=== PATIENT | male | born 1995 | race African-American/Black ===

== ENCOUNTER 2019-01-11 01:16 | Emergency (ER) | payer SELFPAY ==
[~2019-01-11] VITALS: Ht 170.2 cm; Wt 63.5 kg
--- NOTE | 2019-01-11 01:34 | PHYS DOC ---
Past History Past Medical History: No Pertinent History Past Surgical History: No Surgical History Smoking: Non-smoker Alcohol Use: Occasionally Drug Use: None Adult General HPI HPI Patient is a 23-year-old male presents after a possible seizure. Patient felt really hot and cold then rolled off the couch. There was no loss of bowel or bladder control. He reports having a headache, not worst headache of life. He reports multiple previous episodes of this without previous evaluation. Denies any nausea or vomiting or tongue biting. There is a family history of seizures and his father. Denies any photo or phonophobia. This happened shortly prior to arrival. Patient reports having 2 drinks around 8 to 9:00 tonight.[] Review of Systems Review of Systems Constitutional: Denies fever or chills [] Eyes: Denies change in visual acuity, redness, or eye pain [] HENT: Denies nasal congestion or sore throat [] Respiratory: Denies cough or shortness of breath [] Cardiovascular: No chest pain or palpitations[] GI: Denies abdominal pain, nausea, vomiting, bloody stools or diarrhea [] : Denies dysuria or hematuria [] Musculoskeletal: Denies back pain or joint pain [] Integument: Denies rash or skin lesions [] Neurologic: Denies focal weakness or sensory changes, see history of present illness ,[] Endocrine: Denies polyuria or polydipsia [] All other systems were reviewed and found to be within normal limits, except as documented in this note. Physical Exam Physical Exam Constitutional: Well developed, well nourished, no acute distress, non-toxic appearance. [] HENT: Normocephalic, atraumatic, bilateral external ears normal, TMs are clear without any blood or fluid. Oropharynx moist, no oral exudates, nose normal. [] Eyes: PERRLA, EOMI, conjunctiva normal, no discharge. [] Neck: Normal range of motion, no tenderness, supple, no stridor. No nuchal rigidity, no carotid bruit[] Cardiovascular:Heart rate regular rhythm, no murmur [] Lungs & Thorax: Bilateral breath sounds clear to auscultation [] Abdomen: Bowel sounds normal, soft, no tenderness, no masses, no pulsatile masses. [] Skin: Warm, dry, no erythema, no rash. [] Back: No tenderness, no CVA tenderness. [] Extremities: No tenderness, no cyanosis, no clubbing, ROM intact, no edema. [] Neurologic: Alert and oriented X 3, normal motor function, normal sensory function, no focal deficits noted. Normal gait, normal rapid repetitive and alternating movements.[] Psychologic: Affect normal, judgement normal, mood normal. [] EKG EKG EKG shows a sinus rhythm at 63 bpm, normal axis, QTC is normal at 421 ms, no ST elevation. Nonspecific ST-T wave changes. No old EKG available for comparison. Interpreted by me at 0143.[] Radiology/Procedures Radiology/Procedures PROCEDURE: CT HEAD WO CONTRAST INDICATION: Seizure with headache COMPARISON: None. TECHNIQUE: Axial CT images obtained through the head without intravenous contrast. One or more of the following individualized dose reduction techniques were utilized for this examination: 1. Automated exposure control; 2. Adjustment of the mA and/or kV according to patient size; 3. Use of iterative reconstruction technique. FINDINGS: No intracranial hemorrhage. No midline shift. Basal cisterns patent. Ventricles and sulci are unremarkable. No acute osseous abnormality. Orbits and paranasal sinuses unremarkable. 10 mm fluid attenuation structure right cerebral hemisphere. Could be prominent Virchow-Nir space. Other causes such as sequela of lacunar infarct can also have this appearance but would be less common in a patient of this age. IMPRESSION: 1. No acute intracranial hemorrhage.[] Course & Med Decision Making Course & Med Decision Making Pertinent Labs and Imaging studies reviewed. (See chart for details) ED course: Patient arrived, was placed in bed, and tolerated exam well. He was transported to and from radiology without any complications. After the return of the laboratory and imaging findings, these were discussed with the patient who voiced understanding. He had no episodes of this reported seizure activity while in the emergency department. He was discharged in improved condition. Medical decision making: Do not believe patient had a seizure, his electrolytes are normal as is his lactic acid. There is no evidence of meningitis or encephalitis. No evidence of any significant toxic syndrome. Note is made of the cocaine as well as cannabinoids in his urine drug screen. Tonight symptoms may be some component from that. Do not believe this to be alcohol withdrawal seizures since patient had been drinking this evening. There is no evidence of a stroke syndrome. Head CT was reviewed and do not believe that the findings are acutely associated with tonight's events. Given that this has been going on for a long time, we will have patient follow-up with primary care to start further evaluation.[] Dragon Disclaimer Dragon Disclaimer This electronic medical record was generated, in whole or in part, using a voice recognition dictation system. Departure Departure: Impression: Primary Impression: Headache Additional Impressions: Seizure-like activity Drug abuse Disposition: HOME, SELF-CARE Condition: STABLE Referrals: PCP,NO (PCP) Patient Instructions: Drug Abuse and Addiction-SportsMed, General Headache Without Cause, Seizure, Adult Additional Instructions: No driving for 6 months or until cleared by her primary care physician. Follow- up with your regular doctor in 2 days. If you do not have a regular doctor list of local clinics will be provided for you. Do not use any drugs or medicines that are not prescribed for you, they may kill you!. Return to the ER if worsening pain, weakness, return of the seizure activity, or any other concerns. Scripts Meloxicam (MELOXICAM) 7.5 Mg Tablet 7.5 MG PO DAILY for PAIN, #20 TAB Prov: RAJ KING DO 01/11/19 Problem Qualifiers Primary Impression: Headache Headache type: unspecified Headache chronicity pattern: unspecified pattern Intractability: not intractable Qualified Codes: R51 - Headache RAJ KING DO Jan 11, 2019 01:34
--- NOTE | 2019-01-11 01:44 | EKG ---
[address] [address] Test Date: 2019-01-11 Test Time: 01:43:00 Pat Name: JARED GUTIERREZ Department: Room: Gender: M Helper/Driver: ARIES : 1995 Requested By: RAJ KING Order Number: [id number] Reading MD: Measurements Intervals [place] Rate: 63 P: 68 NC: 162 QRS: 55 QRSD: 86 T: 36 QT: 408 QTc: 421 Interpretive Statements SINUS RHYTHM QRS(T) CONTOUR ABNORMALITY CONSISTENT WITH SEPTAL MYOCARDIAL DAMAGE ABNORMAL ECG RI6.01 No previous ECG available for comparison
[2019-01-11 02:27] LABS: BARBITURATES NEG (NEG); BENZODIAZEPINES NEG (NEG); CANNABINOIDS POS (NEG); COCAINE POS (NEG); METHADONE NEG (NEG); OPIATES NEG (NEG); PHENCYCLIDINE NEG (NEG)
[2019-01-11 02:27] LABS: BASO # 0.1 x10^3/uL (0.0-0.2); BASO % 1 % (0-3); EOS # 0.1 x10^3/uL (0.0-0.7); EOS % 1 % (0-3); HEMATOCRIT 42.9 % (39.0-53.0); HEMOGLOBIN 13.9 g/dL (13.0-17.5); LYMPH # 2.8 x10^3/uL (1.0-4.8); LYMPH % 26 % (24-48); MEAN CORPUSCULAR HEMOGLOBIN 27 pg (25-35); MEAN CORPUSCULAR HGB CONC 32 g/dL (31-37); MEAN CORPUSCULAR VOLUME 84 fL (79-100); MONO # 0.8 x10^3/uL (0.0-1.1); MONO % 7 % (0-9); NEUT # 6.9 x10^3uL (1.8-7.7); NEUT % 64 % (31-73); PLATELET COUNT 208 x10^3/uL (140-400); RED BLOOD COUNT 5.09 x10^6/uL (4.30-5.70); RED CELL DISTRIBUTION WIDTH 13.4 % (11.5-14.5); WHITE BLOOD COUNT 10.7 x10^3/uL (4.0-11.0)
[2019-01-11 02:28] LABS: AMPHETAMINE/METHAMPHETAMINE NEG (NEG)
[2019-01-11 02:31] LABS: ALBUMIN 3.9 g/dL (3.4-5.0); CALCIUM 9.5 mg/dL (8.5-10.1); CREATININE 0.8 mg/dL (0.7-1.3); GFR 143.7; TOTAL BILIRUBIN 0.6 mg/dL (0.2-1.0); TOTAL PROTEIN 7.9 g/dL (6.4-8.2)
--- NOTE | 2019-01-11 02:33 | RAD ---
INDICATION: Seizure with headache COMPARISON: None. TECHNIQUE: Axial CT images obtained through the head without intravenous contrast. One or more of the following individualized dose reduction techniques were utilized for this examination: 1. Automated exposure control; 2. Adjustment of the mA and/or kV according to patient size; 3. Use of iterative reconstruction technique. FINDINGS: No intracranial hemorrhage. No midline shift. Basal cisterns patent. Ventricles and sulci are unremarkable. No acute osseous abnormality. Orbits and paranasal sinuses unremarkable. 10 mm fluid attenuation structure right cerebral hemisphere. Could be prominent Virchow-Nir space. Other causes such as sequela of lacunar infarct can also have this appearance but would be less common in a patient of this age. IMPRESSION: 1. No acute intracranial hemorrhage. Electronically signed by: Osmany Garcia MD (01/11/2019 2:30 AM) [facility]
[2019-01-11] MEDS ORDERED: MELO7.5T29 PO (02:43)
[2019-01-11 03:21] VITALS: BP 126/68
== END 2019-01-11 03:22 | disposition home or self-care (01) ==
LOC: ER 01:16
DX: R51 Headache (principal); R56.9 Unspecified convulsions; F19.10 Other psychoactive substance abuse, uncomplicated
CPT/HCPCS: 36415; 70450; 80053; 80307; 83605; 85025; 93005; 99285

== ENCOUNTER 2020-08-12 12:49 | Emergency (ER) | payer SELFPAY ==
[~2020-08-12] VITALS: Ht 170.2 cm; Wt 60.5 kg
[~2020-08-12 12:49] MED LIST: MELO7.5T29 PO
[2020-08-12] MEDS ORDERED: NALOXONE 0.4 MG/ML VIAL. NS ONE (13:00)
[2020-08-12] MEDS ORDERED: NALOXONE 2 MG/2 ML DISP.SYRIN. IV ONE (13:00)
[2020-08-12] MEDS ORDERED: IV NORMAL SALINE 1,000ML 1,000 ML IV ONE (13:00)
--- NOTE | 2020-08-12 13:23 | RAD ---
EXAM: Head CT without contrast. HISTORY: Altered mental status. TECHNIQUE: Computed tomographic images of the head were obtained without contrast. *One or more of the following individualized dose reduction techniques were utilized for this examina tion: 1. Automated exposure control. 2. Adjustment of the mA and/or kV according to patient size. 3. Use of iterative reconstruction technique. COMPARISON: 01/11/2019. FINDINGS: There is no acute or subacute extra-axial or intraparenchymal hemorrhage. There is no mass effect or midline shift. There is no hydrocephalus. The cobian-white matter differentiation pattern is intact. There is an incidental right choroid fissure cyst measuring 1.1 cm. The visualized portions of the orbits, paranasal sinuses and mastoid air cells are unremarkable. No s uspicious calvarial lesion is seen. IMPRESSION: No acute intracranial findings. Note is made that MRI is more sensitive for acute infarction. Electronically signed by: Kathleen Tanner MD (08/12/2020 1:21 PM) [id number]
[2020-08-12 13:26] LABS: CALCIUM 9.1 mg/dL (8.5-10.1); CREATININE 1.3 mg/dL (0.7-1.3); GFR 80.7; POTASSIUM 3.6 mmol/L (3.5-5.1)
--- NOTE | 2020-08-12 13:26 | RAD ---
EXAM: Chest, single view. HISTORY: Altered mental status. COMPARISON: None. FINDINGS: A frontal view of the chest is obtained. There is no infiltrate, pleural effusion or pneumo thorax. The heart is normal in size. IMPRESSION: No acute pulmonary finding. Electronically signed by: Kathleen Tanner MD (08/12/2020 1:24 PM) [id number]
--- NOTE | 2020-08-12 13:27 | EKG ---
[address] [address] Test Date: 2020-08-12 Test Time: 13:04:49 Pat Name: JARED GUTIERREZ Department: Room: Gender: M Customer Order Clerk: SO : 1995 Requested By: ANGEL KURTZ Order Number: [id number] Reading MD: Measurements Intervals [place] Rate: 83 P: 59 WI: 148 QRS: 54 QRSD: 96 T: 47 QT: 414 QTc: 493 Interpretive Statements SINUS RHYTHM LEFT ATRIAL ABNORMALITY QRS(T) CONTOUR ABNORMALITY CONSISTENT WITH SEPTAL INFARCT PROBABLY OLD ABNORMAL ECG RI6.02 No previous ECG available for comparison
[2020-08-12 13:29] LABS: ETHANOL < 10 mg/dL (0-10); SALIC < 2.8 mg/dL (2.8-20.0)
[2020-08-12 13:30] LABS: ACETAMIN < 2 mcg/mL (10-30)
[2020-08-12 13:32] LABS: ALBUMIN/GLOBULIN RATIO 1.1 (1.0-1.7); MAGNESIUM 2.3 mg/dL (1.8-2.4); TOTAL BILIRUBIN 0.4 mg/dL (0.2-1.0); TOTAL PROTEIN 7.6 g/dL (6.4-8.2)
[2020-08-12 13:46] LABS: BASO # 0.1 x10^3/uL (0.0-0.2); BASO % 1 % (0-3); EOS # 0.4 x10^3/uL (0.0-0.7); EOS % 3 % (0-3); HEMATOCRIT 46.6 % (39.0-53.0); HEMOGLOBIN 14.6 g/dL (13.0-17.5); LYMPH # 8.4 x10^3/uL (1.0-4.8); LYMPH % 60 % (24-48); MEAN CORPUSCULAR HEMOGLOBIN 27 pg (25-35); MEAN CORPUSCULAR HGB CONC 31 g/dL (31-37); MEAN CORPUSCULAR VOLUME 85 fL (79-100); MONO % 7 % (0-9); NEUT % 29 % (31-73); PLATELET COUNT 202 x10^3/uL (140-400); RED BLOOD COUNT 5.45 x10^6/uL (4.30-5.70); RED CELL DISTRIBUTION WIDTH 13.9 % (11.5-14.5)
--- NOTE | 2020-08-12 14:24 | PHYS DOC ---
Past History Past Medical History: Asthma Past Surgical History: No Surgical History Smoking: Non-smoker Alcohol Use: Occasionally Drug Use: None General Adult EDM: Chief Complaint: OVERDOSE HPI: HPI: 25 yo M presents to the ED after patient was found unresponsive in his home. Cousin found pt not moving, attempted to wake him up but put him in wet shower. Hx/ROS unobtainable in ED due to presentation/medical condition. Review of Systems: Review of Systems: Unobtainable due to medical condition Current Medications: Current Meds: Current Medications Medications (Trade) Dose Ordered Sig/David Start Time Stop Time Status Last Admin Dose Admin Naloxone HCl (Narcan) 2 mg 1X ONCE 08/12/20 13:00 08/12/20 13:03 DC 08/12/20 12:51 2 MG Sodium Chloride 1,000 ml @ 1,000 mls/hr 1X ONCE 08/12/20 13:00 08/12/20 13:59 DC 08/12/20 13:47 1,000 MLS/HR Allergies: Allergies: Allergies Coded Allergies Type Severity Reaction Last Updated Verified No Known Drug Allergies 08/12/20 No Physical Exam: PE: Constitutional: Unresponsive, thin/fit AA male HENT: Normocephalic, atraumatic, no septal hematoma, no oral bleeding or injury Eyes: Miotic pupils/reactive, EOMI, conjunctiva normal, no discharge. Neck: no jvd, midline step offs Cardiovascular: S1/2 present, tachycardic, no murmurs Lungs & Thorax: Bilateral breath sounds, agonal respirations Abdomen: soft, no tenderness, Skin: Warm, dry, no erythema, no rash. [] Back: No midline tenderness or step-offs, no trauma to the back Extremities: No tenderness, no cyanosis, no lower extremity edema Neurologic: E 1 M 1 V 2 = GCS 4 (pt w/incomprehensible sounds with sternal rub/moans) Psychologic: Unobtainable Current Patient Data: Labs: Laboratory Tests Test 08/12/20 12:52 08/12/20 12:53 Glucose (Fingerstick) 243 mg/dL (70-99) H White Blood Count 14.0 x10^3/uL (4.0-11.0) H Red Blood Count 5.45 x10^6/uL (4.30-5.70) Hemoglobin 14.6 g/dL (13.0-17.5) Hematocrit 46.6 % (39.0-53.0) Mean Corpuscular Volume 85 fL (79-100) Mean Corpuscular Hemoglobin 27 pg (25-35) Mean Corpuscular Hemoglobin Concent 31 g/dL (31-37) Red Cell Distribution Width 13.9 % (11.5-14.5) Platelet Count 202 x10^3/uL (140-400) Neutrophils (%) (Auto) 29 % (31-73) L Lymphocytes (%) (Auto) 60 % (24-48) H Monocytes (%) (Auto) 7 % (0-9) Eosinophils (%) (Auto) 3 % (0-3) Basophils (%) (Auto) 1 % (0-3) Neutrophils # (Auto) 4.0 x10^3uL (1.8-7.7) Lymphocytes # (Auto) 8.4 x10^3/uL (1.0-4.8) H Monocytes # (Auto) 1.0 x10^3/uL (0.0-1.1) Eosinophils # (Auto) 0.4 x10^3/uL (0.0-0.7) Basophils # (Auto) 0.1 x10^3/uL (0.0-0.2) Sodium Level 142 mmol/L (136-145) Potassium Level 3.6 mmol/L (3.5-5.1) Chloride Level 101 mmol/L (98-107) Carbon Dioxide Level 31 mmol/L (21-32) Anion Gap 10 (6-14) Blood Urea Nitrogen 13 mg/dL (8-26) Creatinine 1.3 mg/dL (0.7-1.3) Estimated GFR (Cockcroft-Gault) 80.7 BUN/Creatinine Ratio 10 (6-20) Glucose Level 248 mg/dL (70-99) H Calcium Level 9.1 mg/dL (8.5-10.1) Magnesium Level 2.3 mg/dL (1.8-2.4) Total Bilirubin 0.4 mg/dL (0.2-1.0) Aspartate Amino Transferase (AST) 31 U/L (15-37) Alanine Aminotransferase (ALT) 36 U/L (16-63) Alkaline Phosphatase 105 U/L (46-116) Creatine Kinase 236 U/L (39-308) Troponin I Quantitative < 0.017 ng/mL (0-0.055) Total Protein 7.6 g/dL (6.4-8.2) Albumin 4.0 g/dL (3.4-5.0) Albumin/Globulin Ratio 1.1 (1.0-1.7) Salicylates Level < 2.8 mg/dL (2.8-20.0) L Salicylate Last Dose Date Unknown Salicylate Last Dose Time Unknown Acetaminophen Level < 2 mcg/mL (10-30) L Acetaminophen Last Dose Date Unknown Acetaminophen Last Dose Time Unknown Ethyl Alcohol Level < 10 mg/dL (0-10) Vital Signs: Vital Signs Date Time Temp Pulse Resp B/P (MAP) Pulse Ox O2 Delivery O2 Flow Rate FiO2 08/12/20 13:48 72 12 98 08/12/20 12:50 97.8 137/89 (105) Room Air EKG: EKG: Sinus rhythm 83 bpm, no axis deviation, no T wave inversions, no ST depressions or ST depressions, QTC prolonged 493, no active chest pain Radiology/Procedures: Radiology/Procedures: IMAGING REPORT Signed PATIENT: JARED GUTIERREZ JACCOUNT: [id number] : 1995 LOCATION: ER AGE: 25 SEX: M EXAM STATUS: REG ER ORD. PHYSICIAN: ANGEL KURTZ DO REASON: ams PROCEDURE: PORTABLE CHEST 1V EXAM: Chest, single view. HISTORY: Altered mental status. COMPARISON: None. FINDINGS: A frontal view of the chest is obtained. There is no infiltrate, pleural effusion or pneumothorax. The heart is normal in size. IMPRESSION: No acute pulmonary finding. Electronically signed by: Kathleen Grady MD (08/12/2020 1:24 PM) [id number] DICTATED AND SIGNED BY: KATHLEEN GRADY MD DATE: 08/12/20 1323 CC: PCP,NO; ANGEL KURTZ DO ~MTH0 0 IMAGING REPORT Signed PATIENT: JARED GUTIERREZ JACCOUNT: [id number] : 1995 LOCATION: ER AGE: 25 SEX: M EXAM STATUS: REG ER ORD. PHYSICIAN: ANGEL KURTZ DO REASON: ams PROCEDURE: CT HEAD WO CONTRAST EXAM: Head CT without contrast. HISTORY: Altered mental status. TECHNIQUE: Computed tomographic images of the head were obtained without contrast. *One or more of the following individualized dose reduction techniques were utilized for this examination: 1. Automated exposure control. 2. Adjustment of the mA and/or kV according to patient size. 3. Use of iterative reconstruction technique. COMPARISON: 01/11/2019. FINDINGS: There is no acute or subacute extra-axial or intraparenchymal hemorrhage. There is no mass effect or midline shift. There is no hydrocephalus. The cobian-white matter differentiation pattern is intact. There is an incidental right choroid fissure cyst measuring 1.1 cm. The visualized portions of the orbits, paranasal sinuses and mastoid air cells are unremarkable. No suspicious calvarial lesion is seen. IMPRESSION: No acute intracranial findings. Note is made that MRI is more sensitive for acute infarction. Electronically signed by: Kathleen Grady MD (08/12/2020 1:21 PM) [id number] DICTATED AND SIGNED BY: KATHLEEN GRADY MD DATE: 08/12/20 1320 CC: PCP,NO; ANGEL KURTZ DO ~MTH0 0 Heart Score: Risk Factors: Risk Factors: DM, Current or recent (<one month) smoker, HTN, HLP, family history of CAD, obesity. Risk Scores: Score 0 - 3: 2.5% MACE over next 6 weeks - Discharge Home Score 4 - 6: 20.3% MACE over next 6 weeks - Admit for Clinical Observation Score 7 - 10: 72.7% MACE over next 6 weeks - Early Invasive Strategies Course & Med Decision Making: Course & Med Decision Making Pertinent Labs and Imaging studies reviewed. (See chart for details) Concern for agonal breathing after drug use. Patient responded to 2 mg intranasal Narcan and 1 mg IV Narcan. Had gag reflex after narcan and gradually returned to baseline of GCS15. Glucose was in the 240s. Was started on IV fluids Nexus C-spine criteria are negative: There is no post midline tenderness, the patient is not intoxicated, there is a normal level of alertness, there are no focal neurologic deficits and there are no distracting injuries. Pt reports he took K2, no SI intention. Patient presents to ED with his father who gives consent for me to speak to him. Will discharge home with strict ED return precautions were given for []. Encouraged urgent outpatient follow-up with PMD and [specialist]. Life-threatening processes were considered but are low suspicion at this time, given history, physical exam and ED workup. Pt was educated on all prescription medications and adverse effects. All patient's questions were answered and pt was stable at time of discharge. Life/limb-threatening differential includes but is not limited to, end organ damage/sepsis, trauma/abuse/neglect, neurologic deficit, alcohol/drug ingestion, toxidrome, suicidal/homicidal ideations plans or attempts, psychosis or mental illness resulting in self neglect and inability to care for self. I spoken with the patient and her caregivers. I explained the patient's condition, diagnoses and treatment plan based on the information available to me at this time. I have answered the patient and her caregiver's questions and addressed any concerns. The patient and her caregivers have a good understanding of patient's diagnosis, condition and treatment plan as can be expected at this point. Vital signs have been stable. Patient's condition is stable and appropriate for discharge from the emergency department. Patient will pursue further outpatient evaluation with primary care physician or other designated or consulting physician as outlined in the discharge instructions. The patient and/or caregivers are agreeable to this plan of care and follow-up instructions have been explained in detail. The patient and/or caregivers have received these instructions in written form and have expressed an understanding of the discharge instructions. The patient and/or caregivers are aware that any significant change of condition or worsening of symptoms should prompt immediate return to this or the closest emergency department or call to 911. Paulo Disclaimer: Paulo Disclaimer: This electronic medical record was generated, in whole or in part, using a voice recognition dictation system. Departure Departure: Impression: Primary Impression: Apnea Additional Impressions: Drug use Hyperglycemia Disposition: 01 DC HOME SELF CARE/HOMELESS Condition: STABLE Referrals: AMELIA EMERSON MD (PCP) FOLLOW UP WITH FAMILY MEDICINE: [facility], [facility] [address] [id number] [place] [address] Patient Instructions: Drug Abuse and Addiction-SportsMed, Hyperglycemia, Overdose, Accidental Additional Instructions: Follow-up with your primary care physician within the next week for hemoglobin A1c testing for diabetes -glucose today was above 250 EMERGENCY DEPARTMENT GENERAL DISCHARGE INSTRUCTIONS Thank you for coming to [facility] (ED) today and trusting us with you care. We trust that you had a positivie experience in our Emergency Department. If you wish to speak to the department management, you may call the director at [phone]. YOUR FOLLOW UP INSTRUCTIONS ARE FOLLOWS: 1. Do you have a private Doctor? If you do not have a private doctor, please a sk for a resource list of physicians or clinics that may be able to assist you with follow up care. 2. The Emergency Physician has interpreted your x-rays. The X-Ray specialist will also review them. If there is a change in the findings, you will be notified in 48 hours when at all possible. 3. A lab test or culture has been done, your results will be reviewed and you will be notified if you need a change in treatment. ADDITIONAL INSTRUCTIONS AND INFORMATION: 1. Your care today has been supervised by a physician who is specially trained in emergency care. Many problems require more than one evaluation for a complete diagnosis and treatment. We recommend that you schedule your follow up appointment as recommended to ensure complete treatment of you illness or injury. If you are unable to obtain follow up care and continue to have a problem, or if your condition worsens, we recommend that you return to the ED. 2. We are not able to safely determine your condition over the phone nor are we able to give sound medical advice over the phone. For these safety reasons, if you call for medical advice we will ask you to come to the ED for further evaluation. 3. If you have any questions regarding these discharge instructions please call the ED at [phone]. SAFETY INFORMATION: In the interest of safety, wellness, and injury prevention; we encourage you to wear your sealbelt, if you smoke; quite smoking, and we encourage family to use a protective helmet for bicycling and other sporting events that present an increased risk for head injury. IF YOUR SYMPTOMS WORSEN OR NEW SYMPTOMS DEVELOP, OR YOU HAVE CONCERNS ABOUT YOUR CONDITION; OR IF YOUR CONDITION WORSENS WHILE YOU ARE WAITING FOR YOUR FOLLOW UP APPOINTMENT; EITHER CONTACT YOUR PRIMARY CARE DOCTOR, THE PHYSICIAN WHOSE NAME AND NUMBER YOU WERE GIVEN, OR RETURN TO THE ED IMMEDIATELY. ANGEL KURTZ DO Aug 12, 2020 14:24
[2020-08-12 15:10] LABS: BARBITURATES NEG (NEG); BENZODIAZEPINES NEG (NEG); CANNABINOIDS NEG (NEG); COCAINE POS (NEG); METHADONE NEG (NEG); OPIATES NEG (NEG); PHENCYCLIDINE NEG (NEG)
[2020-08-12 15:11] LABS: AMPHETAMINE/METHAMPHETAMINE POS (NEG)
[2020-08-12 15:14] LABS: BACTERIA,URINE 0 /HPF (0-FEW); BILIRUBIN,URINE NEG (NEG); CLARITY,URINE CLEAR; COLOR,URINE YELLOW; GLUCOSE,URINE NEG (NEG); NITRITE,URINE NEG (NEG); RBC,URINE 0 /HPF (0-2); UROBILINOGEN,URINE 0.2 mg/dL (0.2 mg/dL); WBC,URINE 0 /HPF (0-4)
[2020-08-12 15:41] VITALS: BP 129/90
[2020-08-12 21:06] LABS: PLT ESTIMATE ADEQUATE (ADEQUATE)
== END 2020-08-12 15:41 | disposition home or self-care (01) ==
LOC: ER 12:49
DX: R06.81 Apnea, not elsewhere classified (principal); R73.9 Hyperglycemia, unspecified; F11.90 Opioid use, unspecified, uncomplicated; J45.909 Unspecified asthma, uncomplicated
CPT/HCPCS: 36415; 70450; 71045; 80053; 80307; 80329; 81001; 82550; 82947; 83735; 84484; 85025; 93005; 96361; 96374; 99285; G0480; J2310; J7030